=== PATIENT | male | born 2000 | race African-American/Black ===

== ENCOUNTER 2021-12-08 19:18 | Emergency (ER) | payer MEDICAID ==
[~2021-12-08] VITALS: Ht 175.3 cm; Wt 60.2 kg
[2021-12-09 06:45] VITALS: BP 151/77
== END 2021-12-09 07:41 | disposition home or self-care (01) ==
LOC: EDBD 19:20 → EMS 19:20
DX: R41.82 Altered mental status, unspecified (principal); F15.10 Other stimulant abuse, uncomplicated; F11.10 Opioid abuse, uncomplicated; F17.210 Nicotine dependence, cigarettes, uncomplicated; T43.621A Poisoning by amphetamines, accidental (unintentional), initial encounter; T40.1X1A Poisoning by heroin, accidental (unintentional), initial encounter; Y92.89 Other specified places as the place of occurrence of the external cause
CPT/HCPCS: 82948; 82962; 99285